=== PATIENT | female | born 1945 ===

== ENCOUNTER 2022-05-04 10:57 | Outpatient (CLI) | payer OTHER | END 2022-05-04 11:10 | disposition home or self-care (01) | LOC: TOM 10:57 | PROVIDERS: ATTEND Orthopaedic Surgery Sports Medicine | DX: S42.122A Displaced fracture of acromial process, left shoulder, initial encounter for closed fracture (principal) ==

== ENCOUNTER 2022-07-14 08:03 | Outpatient (CLI) | payer OTHER | END 2022-07-14 08:07 | disposition home or self-care (01) | LOC: SONOGRAMA 08:03 | PROVIDERS: ATTEND Physical Medicine & Rehabilitation | DX: M25.512 Pain in left shoulder (principal); S42.232D 3-part fracture of surgical neck of left humerus, subsequent encounter for fracture with routine healing; S43.122D Dislocation of left acromioclavicular joint, 100%-200% displacement, subsequent encounter ==

== ENCOUNTER 2022-12-06 09:55 | Outpatient (CLI) | payer OTHER | END 2022-12-06 09:57 | disposition home or self-care (01) | LOC: LAB 09:55 | PROVIDERS: ATTEND Orthopaedic Surgery | DX: M85.9 Disorder of bone density and structure, unspecified (principal); E56.1 Deficiency of vitamin K; E55.9 Vitamin D deficiency, unspecified ==